=== PATIENT | male | born 1975 | race Caucasian/White ===

== ENCOUNTER 2020-01-11 16:16 | Emergency (ER) | payer BC, SELFPAY ==
--- NOTE | ~2020-01-11 | XR_ITS ---
XR finger 4th LT min 2V 01/11/2020 16:51 Indication: Trauma to the fourth finger. Laceration. Procedure: 4 views left fourth finger Comparison: No prior studies for comparison. Findings: There is a nondisplaced comminuted tuft fracture left fourth distal phalanx. Moderate soft tissue swelling. No other fractures. Impression: 1: Nondisplaced comminuted tuft fracture left fourth distal phalanx. Reviewed, dictated and finalized at location A. Impression: 1: Nondisplaced comminuted tuft fracture left fourth distal phalanx.
--- NOTE | 2020-01-11 16:26 | ED.WOUNDLAC ---
HPI - Wound/Laceration General Chief Complaint: Wound/Laceration Stated Complaint: Laceration to finger Time Seen by Provider: 01/11/20 16:35 Source: patient and RN notes reviewed Mode of arrival: ambulatory Limitations: no limitations History of Present Illness HPI narrative: 44-year-old male presents with concern for laceration, crush injury to the fourth digit of his left hand. Reports approximate 1 hour ago he smashed finger with a rubber mallet. Reports he cleaned it with peroxide, wrapped it before arrival. He is not up-to-date on his tetanus vaccine Extremity Location: Left: hand Related Data Allergies Allergy/AdvReac Type Severity Reaction Status Date / Time codeine AdvReac Nausea and Verified 01/11/20 16:40 Vomiting Review of Systems Review of Systems: Narrative: CONSTITUTIONAL: Denies malaise, chills, sweats, or fever. SKIN: Reports laceration to the tip of the fourth digit of the left hand MUSCULOSKELETAL: Reports pain, swelling to the tip of the fourth digit of the left hand NEUROLOGIC: Denies numbness, weakness All systems reviewed & are unremarkable except as noted in HPI and below PMFSH Comments At time of signature, agree with nursing past medical, surgical, social and family history. There is no relevant family history pertinent to the presenting complaint Exam Narrative: Exam Narrative: GENERAL: Well-appearing, well-nourished, and in no acute distress. HEAD: Normocephalic EYES: PERRLA, conjunctivae clear NECK: Supple. CHEST: Speaks in full sentences. No respiratory distress. HEART: Regular rate and rhythm. Normal and equal peripheral pulses. EXTREMITIES: Fourth digit of left hand has normal strength and sensation. 5/5 strength with digit flexion, extension. Range of motion normal. No clubbing, cyanosis, or edema noted. No tenderness. Normal digital cascade with flexion of fingers, median, ulnar and radial nerve intact. Normal sensation of each side of finger. Can perform 'okay' sign, 'cross over finger test of index and middle fingers' and 'thumbs up' sign. No scissoring. Normal thumb opposition. Good capillary refill and radial pulse. Distal capillary refill less than 3 seconds. SKIN: Warn, dry, intact, pink. 3 cm gaping laceration into the subcutaneous tissue noted to the distal end of the fifth digit of the left hand, moderate swelling noted. NEURO: Alert and oriented x3. PSYCH: Normal mood and affect Course Course Emergency Course: Patient is aware of diagnosis, understands and agrees to treatment plan. Anticipatory guidance given. Patient agrees to follow-up as directed and is aware of reasons to seek care at the emergency department. Portions of this record may have been created with voice recognition software Vital Signs Vital signs: Vital Signs Temperature 98.4 F 01/11/20 16:27 Pulse Rate 68 01/11/20 16:27 Respiratory Rate 18 01/11/20 16:27 Blood Pressure 137/88 01/11/20 16:27 Pulse Oximetry 100 01/11/20 16:27 Temperature 98.4 F 01/11/20 16:27 Pulse Rate 68 01/11/20 16:27 Respiratory Rate 18 01/11/20 16:27 Blood Pressure 137/88 01/11/20 16:27 Pulse Oximetry 100 01/11/20 16:27 Reviewed. Pt has been instructed to follow up with his primary care provider within the next week regarding his elevated blood pressure today. Procedures Laceration Laceration 1: Date: 01/11/20 Time: 17:00 Site: hand (Fourth digit) Side (If applicable): left Description: linear and irregular Depth: simple, single layer Amount of anesthesia used (mL): 4 Pre-repair: wound explored and irrigated extensively ====== Skin Level ====== Skin layer closed with: nylon Size (cm): 4-0 Number of sutures: 14 Technique: simple, interrupted ====== Subcutaneous Layer ====== ====== Muscle Layer ====== ====== Tendon Layer ====== MDM - Wound/Laceration MDM Narrative Medical decision frantz
[2020-01-11 16:27] VITALS: BP 137/88; PULSE 68; RESP 18; TEMP 36.9; O2SAT 100
[2020-01-11] MEDS: TETANUS,DIPHTHERIA,AC PERTUSSIS ADULT (0.5 ML) BOOSTRIX IM (16:56)
--- NOTE | 2020-01-11 18:17 | PC.NURSE ---
benefits director did sutures and was unable to remove ring with initial attempt and is going to use ring cutter.
== END 2020-01-11 18:28 | disposition home or self-care (01) ==
PROVIDERS: Emergency Provider Nurse Practitioner; PCP Internal Medicine
DX: S62.663B Nondisplaced fracture of distal phalanx of left middle finger, initial encounter for open fracture (principal); W27.8XXA Contact with other nonpowered hand tool, initial encounter; Z23 Encounter for immunization
CPT/HCPCS: 12002; 73140; 90471; 90715; 99213; G0463

== ENCOUNTER → 2020-09-16 14:50 | Outpatient (CLI) | payer BC, SELFPAY ==
--- NOTE | ~2020-09-16 | XR_ITS ---
EXAMINATION: XR knee LT min 4V DATE: 09/16/2020 15:34 INDICATION: Left knee pain. TECHNIQUE: 4 views of left knee were obtained. COMPARISON: None. FINDINGS: Bone alignment is normal. No fracture. There is mild osteoarthritis of medial and patellofe moral compartments characterized by tiny marginal osteophytes. There is a small knee joint effusion. IMPRESSION: 1. Mild left knee osteoarthritis. 2. Small left knee joint effusion. Reviewed, dictated and finalized at location A.
== END ==
PROVIDERS: PCP Internal Medicine; Visit Provider Internal Medicine
DX: M17.12 Unilateral primary osteoarthritis, left knee (principal); M25.462 Effusion, left knee
CPT/HCPCS: 73564

== ENCOUNTER 2020-09-25 09:34 | Outpatient (CLI) | payer BC, SELFPAY ==
--- NOTE | ~2020-09-25 | MR_ITS ---
EXAMINATION: MR knee LT wo con DATE: 09/25/2020 10:38 INDICATION: Left knee pain TECHNIQUE: Magnetic resonance imaging (MRI) of the left knee was performed without intravenous contra st. Sequences included coronal PD-weighted FSE, coronal PD-weighted FS FSE, sagittal T2-weighted FSE , sagittal PD-weighted FS FSE and axial PD weighted fat saturated FSE. COMPARISON: Left knee radiographs dated 09/16/2020 FINDINGS: Medial compartment: Medial meniscus is normal. Articular cartilage is normal. Lateral compartment: Lateral meniscus is normal. Articular cartilage is normal. Patellofemoral compartment: Shallow chondral ulceration at the caudal aspect of the trochlear groove. Remaining cartilage in the patellofemoral compartment is normal. Ligaments and tendons: Posterior cruciate ligament is normal. The anterior cruciate ligament appears normal aside from a sma ll cluster of ganglion cysts extending anteriorly from the distal aspect of the ligament as well as a couple small intraosseous ganglion cysts at the posterior aspect of the tibial footplate. The fibula r collateral ligament is normal. There is thickening and increased signal of the posterior aspect of the proximal medial collateral ligament including the posterior oblique fibers with prominent surroun ding soft tissue edema consistent with partial tear. The extensor mechanism is normal. The visualized medial and lateral hamstring tendons as well as the iliotibial band are normal. Fluid: There is also synovitis associated with the moderate-sized left knee joint effusion. No loose osteoch ondral bodies identified. Moderate-sized Sotelo's cyst measuring 7.2 cm craniocaudally and measuring u p to 2.9 x 1.1 cm maximal transaxial dimensions. Prominent subcutaneous edema about the knee with add itional deeper soft tissue edema surrounding the fluid-filled joint space and along the posterior mar gin of the distal vastus medialis and vastus lateralis muscles. Osseous/other: Normal marrow signal. No fracture or pathologic marrow replacing process. IMPRESSION: 1. Partial tear of the posterior aspect of the proximal medial collateral ligament. 2. Small ganglion cyst at the distal aspect of the otherwise normal appearing anterior cruciate ligam ent. 3. Small region of shallow chondral ulceration at the inferior aspect of the trochlear groove. 4. Moderate-sized left knee joint effusion and moderate-sized Sotelo's cyst. Reviewed, dictated and finalized at location A. IMPRESSION: 1. Partial tear of the posterior aspect of the proximal medial collateral ligam ent. 2. Small ganglion cyst at the distal aspect of the otherwise normal appearing a nterior cruciate ligament. 3. Small region of shallow chondral ulceration at the inferior aspect of the tr ochlear groove. 4. Moderate-sized left knee joint effusion and moderate-sized Sotelo's cyst.
== END 2020-09-25 09:35 | disposition home or self-care (01) ==
PROVIDERS: PCP Internal Medicine; Visit Provider Internal Medicine
DX: M65.862 Other synovitis and tenosynovitis, left lower leg (principal); S83.412A Sprain of medial collateral ligament of left knee, initial encounter; M71.22 Synovial cyst of popliteal space [Baker], left knee
CPT/HCPCS: 73721

== ENCOUNTER 2021-01-27 10:03 | Outpatient (CLI) | payer BC, SELFPAY ==
--- NOTE | ~2021-01-27 | CT_ITS ---
EXAMINATION: CT soft tissue neck w con EXAM DATE: 01/27/2021 10:30 INDICATION: Mass of parotid gland; Other disease of salivary gland. TECHNIQUE: Spiral CT of the neck was performed following intravenous injection of 75 mL Omnipaque 350 . Axial, coronal and sagittal images were reviewed. The dose-length product (DLP) for this examinat ion was 506.69 mGy-cm. The exposure was tailored according to patient size (auto mA exposure control ), and iterative reconstruction (ASIR) was used as additional dose reduction technique. There is no prior study for comparison. FINDINGS: Along the right side of the face there is peripherally enhancing centrally low density lesi on measuring 9 mm with surrounding inflammation, some overlying skin thickening. Could be an infected sebaceous cyst. This appears to be outside of the parotid gland. The thyroid gland is unremarkable. There is no cervical lymphadenopathy. The superior mediastinum is unremarkable. The airway is unremarkable. Parapharyngeal and pre-glottic fat planes are preserved. The opacified vasculat ure is patent. The orbits are unremarkable. Completely opacified left maxillary sinus. Moderate o pacity in the left sphenoid sinus. Lung apices are clear. There is mild cervical spondylosis. IMPRESSION: 1. Right facial superficial cystic mass, adjacent inflammation. Could be infected sebaceous cyst but other histology not excludable. No lymphadenopathy. Clinical correlation and follow-up. 2. Left maxillary, sphenoid opacity. Reviewed, dictated and finalized at location B. IMPRESSION: 1. Right facial superficial cystic mass, adjacent inflammation. Could be infect ed sebaceous cyst but other histology not excludable. No lymphadenopathy. Clini ale correlation and follow-up. 2. Left maxillary, sphenoid opacity.
== END 2021-01-27 10:04 | disposition home or self-care (01) ==
LOC: ANHIMG 10:07
PROVIDERS: PCP Internal Medicine; Visit Provider Clinical Nurse Specialist
DX: K11.8 Other diseases of salivary glands (principal)
CPT/HCPCS: 70491; Q9967

== ENCOUNTER 2021-04-14 11:22 | Outpatient (CLI) | payer BC, SELFPAY ==
[2021-04-14 11:58] LABS: Basophils Absolute Auto 0.1 K/mm3 (0.0-0.1); Basophils Percent Auto 0.9 % (0.2-1.2); Eosinophils Absolute Auto 0.1 K/mm3 (0-0.3); Eosinophils Percent Auto 1.2 % (0-4.4); Hematocrit 47.5 % (42.0-52.0); Hemoglobin 15.9 g/dL (14.0-18.0); Immature Granulocyte Absolute 0.02 K/mm3 (0.00-0.031); Immature Granulocyte Percent A 0.3 % (0-0.5); Lymphocytes Absolute Auto 2.02 K/mm3 (0.9-3.2); Lymphocytes Percent Auto 31.1 % (18.3-44.2); Mean Corpuscular HGB Conc 33.5 g/dl (32-36); Mean Corpuscular Hemoglobin 30.8 pg (26-34); Mean Corpuscular Volume 91.9 fl (80-100); Mean Platelet Volume 10.4 fl (7.4-10.4); Monocytes Absolute Auto 0.4 K/mm3 (0.1-0.6); Monocytes Percent Auto 6.6 % (2.6-8.5); Neutrophils Absolute Auto 3.9 K/mm3 (1.3-6.7); Neutrophils Percent Auto 59.9 % (45.5-73.1); Platelet Count Result 190 k/mm3 (150-375); Red Blood Count 5.17 M/mm3 (4.6-6.20); Red Cell Distribution Width 13.4 % (11.5-14.5); White Blood Count 6.5 K/mm3 (4.5-10.0)
[2021-04-14 12:09] LABS: Alanine Aminotransferase 69 U/L (4-50); Albumin Level 4.8 g/dL (3.5-5.1); Alkaline Phosphatase 65 U/L (38-126); Anion Gap 9 mmol/L (8-16); Aspartate Amino Transferase 41 U/L (17-59); Bilirubin,Total 0.6 mg/dL (0.2-1.3); Blood Urea Nitrogen 21 mg/dL (9-20); Carbon Dioxide 26 mmol/L (22-30); Chloride 101 mmol/L (98-107); Estimated Glomerular Filt Rate > 60; Glucose 96 mg/dL (65-110); Potassium 4.1 mmol/L (3.4-5.0); Sodium 136 mmol/L (137-145)
[2021-04-14 12:10] LABS: Cholesterol 223 mg/dL (0-200); HDL Direct 28 mg/dL; Triglycerides 508 mg/dL (<150)
[2021-04-14 12:21] LABS: LDL Cholesterol Direct 94 mg/dL
== END 2021-04-14 11:23 | disposition home or self-care (01) ==
PROVIDERS: PCP Internal Medicine; Visit Provider Nurse Practitioner
DX: Z01.818 Encounter for other preprocedural examination (principal); E78.5 Hyperlipidemia, unspecified
CPT/HCPCS: 36415; 80053; 80061; 85025

== ENCOUNTER 2023-12-23 09:56 | Outpatient (CLI) | payer BC, SELFPAY ==
--- NOTE | ~2023-12-23 | US_ITS ---
EXAMINATION: US soft tissue groin RT DATE: 12/23/2023 10:19 INDICATION: Right groin lump. History of right inguinal hernia repair. TECHNIQUE: Multiple grayscale and Doppler ultrasound images of the right groin were obtained. COMPARISON: None FINDINGS: There is prominent fat in the right inguinal canal. IMPRESSION: 1. Prominent fat in the right inguinal canal, which may be the normal postoperative appearance or may be a recurrent right inguinal hernia. Reviewed, dictated and finalized at location A. IMPRESSION: 1. Prominent fat in the right inguinal canal, which may be the normal postopera tive appearance or may be a recurrent right inguinal hernia.
== END 2023-12-23 09:57 ==
LOC: GOSHIMG 09:59
PROVIDERS: PCP Internal Medicine; Visit Provider Nurse Practitioner
DX: R10.30 Lower abdominal pain, unspecified (principal); Z87.19 Personal history of other diseases of the digestive system; Z98.890 Other specified postprocedural states
CPT/HCPCS: 76882

== ENCOUNTER 2024-04-24 08:29 | Outpatient (CLI) | payer BC, SELFPAY | END 2024-04-24 08:30 | disposition home or self-care (01) | LOC: ANHSURGERY 08:37 → ANHLAB 15:44 | PROVIDERS: PCP Nurse Practitioner; Visit Provider Surgery | DX: Z01.818 Encounter for other preprocedural examination (principal); K40.90 Unilateral inguinal hernia, without obstruction or gangrene, not specified as recurrent | CPT/HCPCS: 36415; 86850; 86870; 86880; 86900; 86901; 86902; 86905; 86906; 86971 ==

== ENCOUNTER 2024-06-01 08:37 | Outpatient (CLI) | payer BC, SELFPAY | END 2024-06-01 08:38 | disposition home or self-care (01) | LOC: ANHSURGERY 08:41 | PROVIDERS: PCP Internal Medicine; Visit Provider Surgery | DX: K40.90 Unilateral inguinal hernia, without obstruction or gangrene, not specified as recurrent (principal) | CPT/HCPCS: 36415; 86850; 86900; 86901 ==

== ENCOUNTER 2024-06-06 00:20 | Day surgery (SDC) | payer BC, SELFPAY ==
[2024-04-20 10:31] VITALS: BMI 28.9
--- NOTE | 2024-04-20 10:38 | PC.NURSE ---
Report to the Outpatient Waiting Room, entrance under the green pavilion located off [facility], at time _0600_ on date _[id number]_. Planned Procedure Time: _0730_.? Time changes happen often and if your time is changed the preop area will call you the afternoon before. - You and your visitor will be asked to self-screen and do not enter if you have any COVID symptoms. Please call surgeon if you need to reschedule. - A mask is optional within the hospital at this time. Patients may have clear liquids (water, carbonated beverages, clear teas, apple juice) until 3 hours prior to surgery with a maximum of 20 ounces. - No food from midnight until time of surgery and no smoking. This includes no chewing gum, candy or mints. Take only the following medications with a SIP of water on the morning of surgery: __None DO NOT STOP ANY OF YOUR OTHER PRESCRIPTION MEDICATIONS PRIOR TO SURGERY EXCEPT THE FOLLOWING Medications to discontinue per physician ___None___ Please no make-up, nail grenadian, hairspray, perfume, deodorant, or body powder the day of surgery.? No jewelry (including any body piercings) or valuables the day of surgery, leave them at home.? Please take a shower or bath the night before, or the morning of, surgery with an antibacterial soap.? Wear comfortable, loose fitting clothing.? - Jewelry must be removed prior to entering the operating room.? Rings and piercings that are not removed may be cut off. - The hospital will not accept responsibility for valuables.? - Please leave all valuables, including medications, at home the day of surgery. If you are going home after surgery, a licensed cross country truck driver must drive you home.? - NO public transportation without another adult if you receive anesthesia. - We recommend that an adult stay with you for 24 hours following discharge. - We also recommend that you do not drive, make important decision, drink alcoholic beverages, or take any drugs that were not prescribed by your health care provider for at least 24 hours after your discharge time. Follow any additional instructions given to you from your surgeon. Telephone instructions given to _Larry__and asked if any additional questions and then verbalized understanding. Patient advised to call surgeon office or pre surgery nurse liaison [phone] if any additional questions.
--- NOTE | 2024-05-30 14:49 | PC.NURSE ---
Report to the Outpatient Waiting Room, entrance under the green pavilion located off [facility], at time _1100_ on date _[id number]_. Planned Procedure Time: _1pm_.? Time changes happen often and if your time is changed the preop area will call you the afternoon before. - You and your visitor will be asked to self-screen and do not enter if you have any COVID symptoms. Please call surgeon if you need to reschedule. - A mask is optional within the hospital at this time. Patients may have clear liquids (water, carbonated beverages, clear teas, apple juice) until 3 hours prior to surgery with a maximum of 20 ounces. - No food from midnight until time of surgery and no smoking. This includes no chewing gum, candy or mints. Take only the following medications with a SIP of water on the morning of surgery: __None DO NOT STOP ANY OF YOUR OTHER PRESCRIPTION MEDICATIONS PRIOR TO SURGERY EXCEPT THE FOLLOWING Medications to discontinue per physician ____None Please no make-up, nail turkmen, hairspray, perfume, deodorant, or body powder the day of surgery.? No jewelry (including any body piercings) or valuables the day of surgery, leave them at home.? Please take a shower or bath the night before, or the morning of, surgery with an antibacterial soap.? Wear comfortable, loose fitting clothing.? - Jewelry must be removed prior to entering the operating room.? Rings and piercings that are not removed may be cut off. - The hospital will not accept responsibility for valuables.? - Please leave all valuables, including medications, at home the day of surgery. If you are going home after surgery, a licensed clamp truck driver must drive you home.? - NO public transportation without another adult if you receive anesthesia. - We recommend that an adult stay with you for 24 hours following discharge. - We also recommend that you do not drive, make important decision, drink alcoholic beverages, or take any drugs that were not prescribed by your health care provider for at least 24 hours after your discharge time. Follow any additional instructions given to you from your surgeon. Telephone instructions given to _Larry__and asked if any additional questions and then verbalized understanding. Patient advised to call surgeon office or pre surgery nurse liaison [phone] if any additional questions.
[2024-06-06] VITALS (10 sets, daily range): BP systolic 117–147; BP diastolic 71–98; PULSE 85–104; RESP 12–18; TEMP 36.6–37.3; O2SAT 92–99; BMI 30.7
[2024-06-06] MEDS: LACTATED RINGERS 1,000 ML 30 ML IV CONT ×3 (10:50→16:48)
[2024-06-06] MEDS: ACETAMINOPHEN 500 MG TABLET 1000 MG PO (10:57)
[2024-06-06] MEDS: KETOROLAC 15 MG/ML VIAL (*BKC) IV PUSH ×2 (10:57→14:22)
--- NOTE | 2024-06-06 11:15 | WPDANESEPPF ---
Anes - Initial Pre Proc Eval Procedure: Operation Date: 06/06/24 12:00 Proposed Procedures p Robotic Assisted Laparoscopic Right Inguinal Hernia Repair with Mesh - Bartolome Bentley MD Date/Time: 06/06/24 11:15 Surgeon: Bartolome Bentley MD Pre Op Diagnosis: Right Ing Hernia Patient Data Age: 49 Gender: M Height: 1.73 m Weight: 91.6 kg Last Vital Signs Temp 37.3 C 06/06/24 10:30 Pulse 102 H 06/06/24 10:30 Resp 16 06/06/24 10:30 BP 147/98 H 06/06/24 10:30 Pulse Ox 99 06/06/24 10:30 O2 Del Method Room Air 06/06/24 10:30 Allergies Allergy/AdvReac Type Severity Reaction Status Date / Time codeine AdvReac Nausea and Verified 06/06/24 11:16 Vomiting Home Medications ?Medication ?Instructions ?Recorded ?Confirmed ?Type acetaminophen 500 mg tablet 500 mg PO Q6H PRN pain 06/06/24 06/06/24 History (Tylenol Extra Strength) Patient hx anesthesia problems: none Family hx anesthesia problems: none Results Review: All pre-operative results and documents have been reviewed as part of the pre-operative evaluation. [facility] Past Medical History Medical History Hyperlipidemia Mixed hypercholesterolemia and hypertriglyceridemia Surgical History Surgical History H/O knee surgery Hx of hernia repair (~2014) Family History Family History Unknown Heart disease Malignant neoplasm of prostate Mother Hypertension Family history of malignant neoplasm of thyroid Father Family history of elevated blood lipids Gout Mother Hypertension Other Diabetes mellitus Family history of malignant neoplasm Social History Social History Social History: Never smoker Years smoked: 3 Smoking status: Never smoker Smoking end date: 04/20/98 Alcohol intake: current Drinks per week: 12 Alcohol use details: drinks a 12 pack a week Do You Feel Safe in your Home?: Yes Lack of Transportation: No Lack of Food: Never True Current Housing: I Have Housing Concerned About Future Housing: No Difficulty Paying Gas/Electric Bills: No Difficulty Paying for Meds: No Currently Unemployed: No Education: Bachelor's Degree Difficulty w/ Childcare or Family Care: No Living arrangements: with family Gender identity (if verbalized by the patient): Male Spiritual care concerns: No Anes - Eval Final PreProcedure Day of Procedure 06/06/24 11:15 Patient weight: obese Heart: regular rate and rhythm Lungs: clear to auscultation Airway: Mallampati scale class III Neurological: alert and oriented Last oral intake: >/= 8 hours ASA classification: III Emergent: no Anesthetic plan: proceed Anesthesia type and monitoring: general ETT Results Review: All pre-operative results and documents have been reviewed as part of the pre-operative evaluation. Informed Consent: The patient's anesthetic plan and its attendant risks and benefits were discussed with the patient/family/POA. Questions were solicited and answers provided to the satisfaction of the patient/family/POA.
--- NOTE | 2024-06-06 12:10 | P.HP_ITS ---
H&P: HPI History of Present Illness Date/Time: 06/06/24 12:10 Chief Complaint: Right inguinal hernia Narrative: Mr. Mccord presents to the office for evaluation. Approximately 3 weeks ago, after heavy lifting with yard work, he developed slight bulging with associated discomfort in his right groin. Was sent for a ultrasound which showed prominent fat in the right inguinal canal, which may be the normal postoperative appearance or may be a recurrent right inguinal hernia. He has no history of right inguinal hernia repair, but did undergo open left inguinal hernia repair with PHS mesh in 05/2012. He denies nausea, vomiting, abdominal distention, change in bowel habits, or urinary difficulty. No recurrent bulging or issues with left groin. Review of Systems Review of Systems: The remainder of the review of systems to include constitutional, HEENT, cardiovascular, respiratory, GI, , integumentary, musculoskeletal, endocrine, immunologic, hematologic, psychiatric, and neurologic are all negative except for which is mentioned above in the HPI. [facility] Past Medical History Medical History Hyperlipidemia Mixed hypercholesterolemia and hypertriglyceridemia Surgical History Surgical History H/O knee surgery Hx of hernia repair (~2014) Family History Family History Unknown Heart disease Malignant neoplasm of prostate Mother Hypertension Family history of malignant neoplasm of thyroid Father Family history of elevated blood lipids Gout Mother Hypertension Other Diabetes mellitus Family history of malignant neoplasm Social History Social History Social History: Never smoker Years smoked: 3 Smoking status: Never smoker Smoking end date: 04/20/98 Alcohol intake: current Drinks per week: 12 Alcohol use details: drinks a 12 pack a week Do You Feel Safe in your Home?: Yes Lack of Transportation: No Lack of Food: Never True Current Housing: I Have Housing Concerned About Future Housing: No Difficulty Paying Gas/Electric Bills: No Difficulty Paying for Meds: No Currently Unemployed: No Education: Bachelor's Degree Difficulty w/ Childcare or Family Care: No Living arrangements: with family Gender identity (if verbalized by the patient): Male Spiritual care concerns: No Meds Home Medications and Allergies Home Medications ?Medication ?Instructions ?Recorded ?Confirmed ?Type acetaminophen 500 mg tablet 500 mg PO Q6H PRN pain 06/06/24 06/06/24 History (Tylenol Extra Strength) Allergies Allergy/AdvReac Type Severity Reaction Status Date / Time codeine AdvReac Nausea and Verified 06/06/24 11:16 Vomiting Vital Signs Vital Signs - 24 hr 06/06/24 10:30 Temperature 37.3 C Pulse Rate 102 H Respiratory Rate 16 Blood Pressure 147/98 H Pulse Oximetry 99 Oxygen Delivery Room Air Exam Const: General: comfortable and no acute distress HENMT: Ears: TM's normal bilaterally Face/Nose/Sinus: Normal nares present Mouth: Yes moist mucous membranes Eyes: General: appearance normal, both eyes and all related structures Sclera: sclerae normal Pupils: Equal, round and reactive pupils present EOM: EOMs intact bilaterally Neck: Neck: supple and no JVD Resp: Effort & Inspection: normal respiratory effort Auscultation: clear to auscultation bilaterally Cardio: Rate: regular rate Rhythm: regular rhythm GI: Other: Moderate-sized reducible right inguinal hernia. No left inguinal hernia. No testicular masses. Skin: General skin exam: normal color and no rashes or lesions noted Neuro: General: gait normal Speech: normal speech Motor exam (neuro): 5/5 motor strength present throughout Sensory Exam: normal sensation Extrem: General: normal to inspection Psych: Mental Status: mental status grossly normal Affect: normal affect Assessment and Plan Assessment and plan (1) Right inguinal hernia: Code(s): K40.90 - Unilateral inguinal hernia, without obstruction or gangrene, not specified as recurrent Status: Acute Assessment and Plan: Clinical exam reveals no change to patient right inguinal hernia. I recommend to proceed with robotic assisted laparoscopic right inguinal hernia repair with mesh to be done under general anesthesia as an outpatient. Procedure risks, benefits, indications, and expected outcomes were discussed with the patient in detail. All questions were answered. Patient would like to proceed. Follow-up 2 weeks postoperatively.
--- NOTE | 2024-06-06 12:12 | WPDHPUPDATE1 ---
History and Physical Update Update Date/Time: 06/06/24 12:12 History and Physical has been reviewed, including an updated exam of the patient. There are NO changes in the patient's condition. Risks, benefits, and alternatives have been discussed and questions answered. Patient agrees to proceed with procedure.
[2024-06-06] MEDS: ceFAZolin 2 GM/D5W 50 ML 2 GM/50 ML BAG IVPB (12:30)
[2024-06-06] MEDS: LIDO 1%/EPINEPHRINE 1:100,000 50 ML VIAL 30 ML INFILTRATE (13:12)
[2024-06-06] MEDS: BUPivacaine HCL 0.5% 10 ML AMP 30 ML INFILTRATE (13:12)
--- NOTE | 2024-06-06 14:40 | W.PM.PROC2 ---
Procedure Note - Detailed Date of Procedure 06/06/24 Pre-op Diagnosis Reducible right inguinal hernia Post-op Diagnosis Same Procedure Performed Robotic assisted laparoscopic right inguinal hernia repair with Bard 3D mid weight mesh Surgeon Bartolome Bentley MD Wirer SUMAN Portillo Anesthesia General Indications Patient is a 49-year-old gentleman who presented several months ago with a reducible moderate-sized right inguinal hernia. He had a prior left inguinal hernia repair in the past. No evidence of left inguinal hernia was found. He presents now for a robotic assisted laparoscopic right inguinal hernia repair with mesh. Findings The patient had a large indirect right inguinal hernia which had no incarcerated contents within the hernia sac. A large cord lipoma was seen in the inguinal canal. Description of Procedure After informed consent was obtained patient brought to the operating room was placed in the supine position and general endotracheal anesthesia was administered. The abdomen bilateral groin regions were then prepped and draped usual sterile fashion. A time-out was then performed correctly identifying the patient as well as procedure to be performed. Site marking was verified. He was given perioperative IV antibiotics. I then entered the abdomen left upper quadrant utilizing a 10mm Optiview port. Once inside the abdomen insufflated to adequate pneumoperitoneum of 15mmHg of CO2. The patient was then placed in the head-down Trendelenburg position 15?. The bowel fell out of the pelvis and I was able to easily see a indirect right inguinal hernia without incarcerated contents. I then placed additional robotic trocar ports to include 8mm trocar ports across the mid abdomen. The Moiz robot was then brought to the patient's bedside and docked and the robotic arms were attached the robotic ports. Robotic instruments were then advanced into the abdomen under direct visualization. I then scrubbed out the procedure sent down the robotic console to perform dissection robotically. Starting anterior medial to the right anterior superior iliac spine I incised the peritoneum across the lower abdomen and across the right side of the right median umbilical ligament. I then dissected down in this preperitoneal plane distally next to the bladder down to the pubic tubercle. I then dissected out the pubic symphysis pass the pubic symphysis and dissected down into the space of Retzius. Laterally I dissected the peritoneal flap down until I reached the internal ring. Lastly I then dissected out the indirect inguinal hernia sac out of the inguinal canal. There was a large cord lipoma which was reduced into the inguinal canal. It was dissected free the other cord structures and the indirect inguinal hernia sac was everted. The testicular vessels and vas deferens were preserved without injury throughout the whole procedure. I then dissected the peritoneum proximally up onto the psoas muscle until the cord structures diverged the vas deferens from the I felt that the mesh would not occur level closing the peritoneum this point and so I then chose a piece of extra-large Bard 3D mid weight mesh measuring [id number]. The mesh was oriented for the right side. Was then placed into the abdomen through the regional administrative assistant bedside port in the left upper quadrant and then placed in the dissected space. The medial part of the mesh was then placed over the right pubic tubercle and the inferior portion best extended down into the space of Retzius. I then secured the mesh medially to the tissues around the right pubic tubercle utilizing 2-0 Vicryl sutures. Laterally the mesh was then secured to the muscle anterior medial to the right anterior suprailiac spine. Another suture was used to secure the mesh to the muscle at the direct space. The mesh laid out very nicely without any tension. A covered the whole myopectineal orifice well. There was no evidence of a femoral hernia. I then reapproximated the edges of the peritoneum by utilizing a running 2-0 absorbable V lock suture. The hernia sac was tacked up with the closure of the peritoneum. There were no holes in the peritoneum. The previously resected cord lipoma was then placed into Endo-Catch bag and brought out through the left upper quadrant trocar regional administrative assistant trocar port site. It was discarded and not sent to pathology. I then scrubbed back into the procedure and the de Moiz robot and instruments were removed from the patient and from the bedside. I then checked in the small bowel and the colon was all without injury. There was no bleeding. I then removed all the trocar ports under direct visualization all port sites appeared hemostatic. The abdomen was then allowed to decompress. I then irrigated all the port sites sterile saline solution. Hemostasis was good. I then closed the 8mm umbilical trocar port site with a 0 Vicryl suture to approximate the edges of the fascia. The 10mm left upper quadrant trocar port site was also closed utilizing 0 Vicryl suture at the fascial level. The skin edges in all the port sites were then approximated utilizing a running subcuticular 4 Monocryl suture. The incisions were then cleaned the skin glue was applied. The patient tolerated the procedure well no complications. All sponges, needles, and instrument counts were correct at the end procedure. EBL was _15__cc. The patient was awakened and taken to recovery in stable and satisfactory condition. Implants Bard 3D mid weight mesh [id number] Estimated Blood Loss 15 Drains No Packing No Pathology None sent Complications No immediate complications Condition Stable Disposition PACU [facility] Billing Surgery - Charge Forward: Surgery Billing
[2024-06-06] MEDS: fentaNYL CITRATE INJ (*CRX) 100 MCG/2 ML VIAL 25 MCG IV PUSH ×3 (15:09→15:26)
[2024-06-06] MEDS: oxyCODONE HCL (*CRX) 5 MG TAB IR PO (16:07)
--- OUTSIDE RECORDS SUMMARY | 2024-06-08 15:10 | XMS_ITS | Patient Health Summary ---
Author Organization [facility] Address [address] [place] [address] Care Team Providers Care Affiliate Marketing Specialist Name Role Phone Larry Bernal DO Primary Care Provider [phone] Note from [facility],non-owned Affiliates and Associated Physician Practices is amultiple site organization consisting of ambulatory clinics and hospital sitesin [place], [place], [place] and [place]. This disclosure is being madepursuant to the Care Everywhere program and may not contain all information available regarding this patient. Last updated 18.[facility] Taskforce Allergies No known active allergies Medications Be aware that medications may not be up to date on this document. Always verify current medications with the patient. No known medications Social History Tobacco Use Types Packs/Day Years Used Date Smoking Tobacco: Former Cigarettes Q uit: 2000 Smokeless Tobacco: Never Sex and Gender Information Value Date Recorded Sex Assigned at Not on file Gender Identity Not on file Sexual Orientation Not on file Last Filed Vital Signs Vital Sign Reading Time Taken Comments Blood Pressure 116/68 07/09/2017 12:27 PM FASHION MERCHANDISER Pulse 83 07/09/2017 12:27 PM FASHION MERCHANDISER Temperature 36.4 ??C (97.6 ??F) 07/09/2017 12:[address] Respiratory Rate 16 07/09/2017 12:27 PM FASHION MERCHANDISER Oxygen Saturation 97% 07/09/2017 12:27 PM FASHION MERCHANDISER Inhaled Oxygen Concentration - - Weight 90.7 kg (200 lb) 07/09/2017 12:27 PM FASHION MERCHANDISER Height 172.7 cm (5' 8 ) 07/09/2017 12:27 PM FASHION MERCHANDISER Body Mass Index 30.41 07/09/2017 12:27 PM FASHION MERCHANDISER Care Teams Affiliate Marketing Specialist Relationship Specialty Start Date End Date Larry Bernal DO PCP - General Internal Medicine 07/09/17
--- OUTSIDE RECORDS SUMMARY | 2024-06-08 15:10 | XMS_ITS | Clinical Summary ---
Author Organization [facility] Address [address] [place] [address] Care Team Providers Care Denture Contour Wire Specialist Name Role Phone Larry Bernal DO Primary Care Provider Source Comments [facility] [employer],non-owned Affiliates and Associated Physician Practices is amultiple site organization consisting of ambulatory clinics and hospital sitesin [place], [place], [place] and [place]. This disclosure is being madepursuant to the Care Everywhere program and may not contain all information available regarding this patient. Last updated 18.[facility] [employer] Allergies No known active allergies Medications Be [...] Comments Blood Pressure 116/68 07/09/2017 12:27 PM ENGINE LATHE TENDER Pulse 83 07/09/2017 12:27 PM ENGINE LATHE TENDER Temperature 36.4 ??C (97.6 ??F) 07/09/2017 12:[address] Respiratory Rate 16 07/09/2017 12:27 PM ENGINE LATHE TENDER Oxygen Saturation 97% 07/09/2017 12:27 PM ENGINE LATHE TENDER Inhaled Oxygen Concentration - - Weight 90.7 kg (200 lb) 07/09/2017 12:27 PM ENGINE LATHE TENDER Height 172.7 cm (5' 8 ) 07/09/2017 12:27 PM ENGINE LATHE TENDER Body Mass Index 30.41 07/09/2017 12:27 PM ENGINE LATHE TENDER Plan of Treatment Health Maintenance Due Date Last Done Comments COLOGUARD (AGES 45-75) - COL ON CA SCREENING 1974 COLON MONITORING 1974 COLONOSCOPY - COLON CA SCREENING 1974 CT COLONOGRAPHY - COLON CA SCREENING 1974 Colorectal Cancer Screening 1974 FIT - COLON CA SCREENING 1974 FLEX SIG - COLON CA SCREENING 1974 LIPID TESTING 1974 HIV SCREENING 1989 HEPATITIS C SCREENING 04/03/1992 DTAP/TDAP/TD VACCINES (1 - Tdap) 1993 HEPATITIS B VACCINE (1 of 3 - 19+ 3-dose series) 1993 SCREENING FOR DIABETES 07/09/2017 COVID-19 VACCINE (1 - 2023-2 5 season) 2024 INFLUENZA VACCINE (#1) 2024 PNEUMOCOCCAL VACCINE 50+ (1 of 1 - PCV) 2024 ZOSTER VACCINE (1 of 2) 2024 DEPRESSION SCREENING 05/17/2024 HIB VACCINE Aged Out No longer eligi ble based on patient's age to complete this topic HPV VACCINE Aged Out No longer eligi ble based on patient's age to complete this topic MENINGOCOCCAL (Group B) VACCINE Aged Out No longer eligible based on patient's age to complete this topic MENINGOCOCCAL VACCINE Aged Out No olga tracee eligible based on patient's age to complete this topic PNEUMOCOCCAL VACCINE Aged Out No long er eligible based on patient's age to complete this topic Care Teams Denture Contour Wire Specialist Relationship Specialty Start Date End Date Larry Bernal DO PCP - General Internal Medicine 07/09/17
--- OUTSIDE RECORDS SUMMARY | 2024-06-08 15:10 | XMS_ITS | Clinical Summary ---
Author Organization [facility] Address [address] [place] [address]. [place], [place] [id number] [place] [address] Care Team Providers Care Oil Pit Attendant Name Role Phone Larry Bernal DO Primary Care Provider [phone] Allergies Active Allergy Reactions Criticality Noted Date Comments Codeine Nausea Only 03/05/2021 [place] hot Medications No known medications Immunizations Name Administration Dates Next Due Mobilligy (LAMIN & LAMIN) COVID-19 AD26 VACCINE 0.5 ML IM SUSP 07/23/2020 Family History Medical History Relation Comments Hyperlipidemia Father Hypertension Mother Relation Status Comments Father Alive Mother Alive Social History Tobacco Use Types Packs/Day Years Used Date Smoking Tobacco: Former Cigarettes Q uit: 03/05/2000 Smokeless Tobacco: Never Comments:was only sa social smoker- quit over 20 years ago Alcohol Use Standard Drinks/Week Comments Yes 20 (1 standard drink = 0.6 oz pu re alcohol) Sex and Gender Information Value Date Recorded Sex Assigned at Not on file Legal Sex Male 11:02 AM CDT Gender Identity Not on file Sexual Orientation Not on file Last Filed Vital Signs Vital Sign Reading Time Taken Comments Blood Pressure 125/87 03/10/2021 11:55 AM CDT Pulse 61 03/10/2021 11:55 AM CDT Temperature 36.2 ??C (97.2 ??F) 03/10/2021 1 1:55 AM CDT Respiratory Rate 18 03/10/2021 11:5 5 AM CDT Oxygen Saturation 96% 03/10/2021 11: 55 AM CDT Inhaled Oxygen Concentration - - Weight 88.9 kg (195 lb 15.8 oz) 03/10/2021 8:00 AM CDT Height 172.7 cm (5' 8 ) 03/10/2021 8:00 AM CDT Body Mass Index 29.8 03/10/2021 8:00 AM CDT Plan of Treatment Health Maintenance Due Date Last Done Comments Colorectal Cancer Screening Colonoscopy (10 Years) 1974 Annual Physical 1977 Hepatitis C 1992 DTaP, Tdap and Td Vaccines ( 1 - Tdap) 1993 Hepatitis B Vaccines (1 of 3 - 19+ 3-dose series) 1993 COVID-19 Vaccine (2 - 2023-2 5 season) 2024 07/23/2020 Influenza Adult (#1) 2024 Zoster Vaccines (1 of 2) 2024 Meningococcal Vaccine Aged Out No olga tracee eligible based on patient's age to complete this topic Pneumococcal Vaccine: Pediat rics (0 to 5 Years) and At-Risk Patients (6 to 64 Years) Aged Out No longer eligi ble based on patient's age to complete this topic RSV Immunizations Under 20 Months Aged Out No longer eligible based on patient's age to complete this topic Insurance [facility] Care Teams Oil Pit Attendant Relationship Specialty Start Date End Date Larry Bernal DO [address] [place] [address] PCP - General INTERNAL MEDICINE 03/05/21
--- OUTSIDE RECORDS SUMMARY | 2024-06-08 15:10 | XMS_ITS | Referral Summary ---
Author Organization [facility] Address [address] [place] [address] Care Team Providers Care Diesel Engine Mechanic Name Role Phone Larry Bernal DO Primary Care Provider Source Comments [facility] [employer],non-owned Affiliates and Associated Physician Practices is amultiple site organization consisting of ambulatory clinics and hospital sitesin [place], [place], [place] and [place]. This disclosure is being madepursuant to the Care Everywhere program and may not contain all information available regarding this patient. Last updated 18.[facility] [employer] Allergies No known active allergies Medications Be [...] Comments Blood Pressure 116/68 07/09/2017 12:27 PM MACHINE WOODWORKING SANDER Pulse 83 07/09/2017 12:27 PM MACHINE WOODWORKING SANDER Temperature 36.4 ??C (97.6 ??F) 07/09/2017 12:[address] Respiratory Rate 16 07/09/2017 12:27 PM MACHINE WOODWORKING SANDER Oxygen Saturation 97% 07/09/2017 12:27 PM MACHINE WOODWORKING SANDER Inhaled Oxygen Concentration - - Weight 90.7 kg (200 lb) 07/09/2017 12:27 PM MACHINE WOODWORKING SANDER Height 172.7 cm (5' 8 ) 07/09/2017 12:27 PM MACHINE WOODWORKING SANDER Body Mass Index 30.41 07/09/2017 12:27 PM MACHINE WOODWORKING SANDER Plan of Treatment Not on file Care Teams Diesel Engine Mechanic Relationship Specialty Start Date End Date Larry Bernal DO PCP - General Internal Medicine 07/09/17
--- OUTSIDE RECORDS SUMMARY | 2024-06-08 15:10 | XMS_ITS | Referral Summary ---
Author Organization [address] Address [address] [place] [id number] Care Team Providers Care Grab Jack Man Name Role Phone Larry Bernal DO Primary Care Provider [phone] Molina Eugene PA Unavailable [phone] Allergies Active Allergy Reactions Criticality Noted Date Comments Codeine Stomach upset Low 02/10/2021 Medications ibuprofen (ADVIL,MOTRIN) 200 mg tab/cap Take 1 tablet/caps ule (200 mg total) by mouth every 6 (six) hours as needed for pain Active atorvastatin (LIPITOR) 10 mg tablet 04/14/2021 Active Active Problems Problem Noted Date Diagnosed Date Tear of medial meniscus of left knee 04/04/2021 Overview (04/04/2021): Added automatically from request for surgery [id number] Social History Tobacco Use Types Packs/Day Years Used Date Smoking Tobacco: Never Smokeless Tobacco: Never Tobacco Cessation:Counseling Given: Not Answered AUDIT-C Answer Date Recorded Q1: How often do you have a drink containing alc ohol? 2-3 times a week 04/15/2021 Q2: How many drinks containi ng alcohol do you have on a typical day when you are drinking? 1 or 2 04/15/2021 Q3: How often do you have si x or more drinks on one occasion? Less than monthly 04/15/2021 Sex and Gender Information Value Date Recorded Sex Assigned at Not on file Legal Sex Male 11:10 PM SETTER INDUCTION HEATING EQUIPMENT Gender Identity Not on file Sexual Orientation Not on file Last Filed Vital Signs Vital Sign Reading Time Taken Comments Blood Pressure 166/98 02/11/2024 8:18 AM CDT Pulse 68 02/11/2024 8:18 AM CDT Temperature 36.1 ??C (97 ??F) 04/15/2021 9:15 AM SETTER INDUCTION HEATING EQUIPMENT Respiratory Rate 20 04/15/2021 9:49 AM SETTER INDUCTION HEATING EQUIPMENT Oxygen Saturation 98% 04/15/2021 9:49 AM SETTER INDUCTION HEATING EQUIPMENT Inhaled Oxygen Concentration - - Weight 88.5 kg (195 lb) 02/11/2024 8:18 AM CDT Height 172.7 cm (5' 8 ) 02/11/2024 8:18 AM CDT Body Mass Index 29.65 02/11/2024 8:18 AM CDT Plan of Treatment Not on [place] [address] [place] Subscriber Plan / Payer (Ef fective 2022-Present) Name:Larry Mccord V Relation to Subscriber:Self Name:Larry Mccord V Payer ID:[id number] (NAIC) Type:HEALTHCARE/EXCHANGE Address: [address] Care Teams Grab Jack Man Relationship Specialty Start Date End Date Larry Bernal DO PCP - General Internal Medicine 02/10/21 Molina Eugene PA [address] [place] [address] [address] [place] [address] Physician Sap Manager Orthopedic Surgery 04/15/21
--- OUTSIDE RECORDS SUMMARY | 2024-06-08 15:10 | XMS_ITS | Clinical Summary ---
Author Organization [facility] [address] Address [address] [place] [phone] Care Team Providers Care Wirer Name Role Phone Larry Bernal DO Primary Care Provider [phone] Molina Eugene PA Unavailable [phone] Allergies Active Allergy Reactions Criticality Noted Date [...] (04/04/2021): Added automatically from request for surgery [id number] Surgical History Surgery Date Site/Laterality Comments HERNIA REPAIR CYST REMOVAL Right cyst removed from cheek Medical History Medical History Date Comments Hypercholesteremia Hiatal hernia Osteoarthritis Family History Medical History Relation Name Comments Heart disease Other Hypertension Other Relation Name Status Comments Other Social History Tobacco Use Types Packs/Day Years [...] on file Legal Sex Male 11:10 PM FIELD CROP HARVEST WORKER Gender Identity Not on file Sexual Orientation Not on file Obstetrics History Last Filed Vital Signs Vital Sign Reading Time Taken Comments Blood Pressure 166/98 02/11/2024 8:18 AM CDT Pulse 68 02/11/2024 8:18 AM CDT Temperature 36.1 ??C (97 ??F) 04/15/2021 9:15 AM FIELD CROP HARVEST WORKER Respiratory Rate 20 04/15/2021 9:49 AM FIELD CROP HARVEST WORKER Oxygen Saturation 98% 04/15/2021 9:49 AM FIELD CROP HARVEST WORKER Inhaled Oxygen Concentration - - Weight 88.5 kg (195 lb) 02/11/2024 8:18 AM CDT Height 172.7 cm (5' 8 ) 02/11/2024 8:18 AM CDT Body Mass Index 29.65 02/11/2024 8:18 AM CDT Plan of Treatment Health Maintenance Due Date Last Done Comments Colon Cancer Screening-Colonoscopy 1974 Depression Screening 1974 Hepatitis C Screening 1974 Prostate Cancer Screening-PSA 1974 DTaP/Tdap/Td Vaccine (1 - Tdap) 1985 Hepatitis B Screening 1992 Regular Well Visit/Exam 18-64 1992 Covid-19 Vaccine (2 - 2023-2 5 season) 2024 07/23/2020 Influenza Vaccine (#1) 2024 Zoster Vaccine (1 of 2) 2024 Pneumococcal vaccine <65 Aged Out No longer eligible based on patient's age [place] [address] [address] [place] [address] [place] [address] [place] Care Teams Wirer Relationship Specialty Start Date End Date Larry Bernal DO PCP - General Internal Medicine 02/10/21 Molina Eugene PA [address] [place] [address] Physician Plasterer Spray Gun Orthopedic Surgery 04/15/21
== END 2024-06-06 17:43 | disposition home or self-care (01) ==
PROVIDERS: PCP Internal Medicine; Visit Provider Surgery
PROC: 8E0Y4CZ Robotic Assisted Procedure of Lower Extremity, Percutaneous Endoscopic Approach (ICD-10-PCS; CPT 49650; principal; 2024-06-06 12:00)
DX: K40.90 Unilateral inguinal hernia, without obstruction or gangrene, not specified as recurrent (principal); D17.6 Benign lipomatous neoplasm of spermatic cord; E66.9 Obesity, unspecified; Z68.30 Body mass index [BMI] 30.0-30.9, adult
CPT/HCPCS: 49650; S2900; A9270; C1781; J0690; J1100; J1885; J2004; J2250; J2405; J2704; J3010; J7030; J7120